=== PATIENT | female | born 1975 | race Two or more races ===

== ENCOUNTER 2024-04-22 10:44 | Outpatient (CLI) | payer OTHER | END 2024-04-22 10:52 | disposition home or self-care (01) | LOC: SONOGRAMA 10:44 | PROVIDERS: ATTEND General Practice | DX: K40.90 Unilateral inguinal hernia, without obstruction or gangrene, not specified as recurrent (principal) ==

== ENCOUNTER 2024-05-06 15:00 | Outpatient (CLI) | payer OTHER | END 2024-05-06 15:04 | disposition home or self-care (01) | LOC: SONOGRAMA 15:00 | PROVIDERS: ATTEND Pathology Anatomic Pathology & Clinical Pathology | DX: R19.09 Other intra-abdominal and pelvic swelling, mass and lump (principal) ==

== ENCOUNTER 2024-09-03 06:00 | Day surgery (SDC) | payer OTHER ==
[2024-08-27 11:31] VITALS: BP 113/78
[~2024-09-03] VITALS: Ht 170.2 cm; Wt 64.9 kg
[2024-09-03] MEDS ORDERED: CEFAZOLIN SODIUM 1,000 MG VIAL IV ONE (11:00)
[2024-09-03] MEDS ORDERED: MORPHINE SULFATE 4 MG/ML VIAL IV ONE (11:45)
[2024-09-03] MEDS ORDERED: FAMOTIDINE/PF 20 MG/10 ML SYRINGE IV SCH (12:00)
[2024-09-03] MEDS ORDERED: CEFAZOLIN SODIUM 1,000 MG VIAL IV SCH (12:00)
[2024-09-03 22:59] VITALS: BP 96/56; O2SAT 100
== END 2024-09-03 14:45 | disposition home or self-care (01) ==
LOC: CIR.AMB 06:00
PROVIDERS: ATTEND Specialist
DX: R19.09 Other intra-abdominal and pelvic swelling, mass and lump (principal); R59.0 Localized enlarged lymph nodes; D17.79 Benign lipomatous neoplasm of other sites